=== PATIENT | male | born 1970 | race Caucasian/White ===

== ENCOUNTER 2020-06-22 11:00 | Emergency (ER) | payer OTHER, SELFPAY ==
[2020-06-22 11:02] VITALS: BP 161/99; PULSE 79; RESP 16; TEMP 36.3; O2SAT 98; BMI 25.7
[2020-06-22] MEDS: Ketorolac 30 MG/ML Syringe 60 MG IM (11:33)
[2020-06-22] MEDS: Orphenadrine 100 MG Tablet PO (11:33)
--- NOTE | 2020-06-22 11:41 | CT_ITS ---
STUDY: CT ABDOMEN AND PELVIS WITHOUT CONTRAST REASON FOR EXAM: Male, 50 years old. LOWER BACK PAIN. HX OF HEMANT RADIATION DOSAGE (If Supplied By Facility): CTDIvol = ( 8.67 ) mGy, DLP = ( 480.99 ) mGycm TECHNIQUE: Transaxial images were obtained from the dome of the diaphragm to the symphysis pubis without oral contrast, and without intravenous contrast. Sagittal and coronal images were reconstructed. Individualized dose optimization techniques were used for this CT. COMPARISON: None. FINDINGS: The visualized lung bases are unremarkable. The visualized portions of the heart are within normal limits. Normal liver. There are surgical clips in the gallbladder fossa consistent with a prior cholecystectomy. Normal spleen. Normal pancreas. Normal bilateral adrenal glands. Normal right kidney. Normal left kidney. Normal visualized stomach. Normal small intestine. Normal colon. The appendix is visualized and appears normal. Normal abdominal aorta. Normal inferior vena cava. Normal retroperitoneum. Normal urinary bladder. Normal abdominal wall. Normal osseous structures. CT/Abdomen/Pelvis without Cont IMPRESSION: Normal unenhanced CT of the abdomen and pelvis. Electronically Signed: Kamran Cartagena MD at 12:03 EDT Tel , Service support ,
[2020-06-22 12:20] LABS: Bacteria 0 SEEN /hpf (None Seen); Mucous, Urine 0 SEEN /hpf (<or=2+); Red Blood Cells-Urine 0 SEEN /hpf (0-5); Squamous Epithelial Cells - UA 0 SEEN /hpf (0-5); White Blood Cells 0 SEEN /hpf (0-5)
[2020-06-22 12:47] LABS: Color, Urine Yellow (Yellow); Glucose, Dipstick 1000 mg/dl (Normal); Ketone-Dipstick Negative (Negative); Leukocyte Esterase-Dipstick Negative /ul (Negative); Nitrite-Dipstick Negative (Negative); Occult Blood-Urine Negative /ul (Negative); Protein-Dipstick 15 mg/dl (Negative); Specific Gravity, Urine 1.015 (1.002-1.030); Urine Bilirubin Dipstick Negative (Negative); Urine Clarity Clear (Clear); Urine Urobilinogen Normal (Normal)
--- NOTE | 2020-06-22 13:22 | ED.DCSUM_ITS ---
- ER Visit Summary Date of Service: 06/22/20 Chief Complaint: Back pain History of Present Illness: The patient is a 50 M who presents with back pain that has been getting worse over the past 2 weeks. Patient describes the pain as aching. Patient states the pain has been constant. Patient denies any trau ma or injury. Patient states the pain is over the lower lumbar area. Patient states the pain is worse with ambulation. Patient states the pain does radiate down his left leg. Patient also states he has been having some mild pain in his lower abdomen. Patient is concerned that this could be a urinary tract infection. Patient denies any dysuria or hematuria however. Patient denies any bowel or bladder changes. Patient denies any saddle anesthesia. Physical Examination: Vital signs are stable. Patient is afebrile. Patient is in no acute distress. Musculoskeletal exam reveals tenderness over the lower lumbar spine and paraspinal muscles. There is no edema or ecchymosis. There is no bony crepitance or step-off. Range of motion was limited in all motions of the lumbar spine secondary to pain. Deep tendon reflexes are 2+/4 bilaterally. Strength is 5/5 bilateral in the upper and lower extremities. There are no sensory deficits noted. Abdomen is soft. Bowel sounds are normal. There is no tenderness. Cranial nerves II through XII are intact. There are no focal motor or sensory deficits noted. Test Results: Urinalysis was obtained and was within normal limits. CT scan of the abdomen and pelvis was obtained for possible kidney stone. There is no acute abnormality noted. This was interpreted by the radiologist and reviewed by myself. Emergency Department Course and Treatment: Patient was given injection of Toradol here. Patient was also given a dose of oral Norflex. Patient is feeling better on reevaluation. Patient was given prescriptions for Naprosyn and Flexeril. Patient was instructed to use ice to the area. Patient was instructed to follow-up with his primary care physician in 5 to 7 days. Patient understood and was agreeable with the plan. All questions were answered. Disposition: Discharge home Impression: Lumbosacral strain This note was generated with [employer] dictation software. It may contain incorrect words, spelling, and punctuation that were not noted in review of the chart prior to signing ED Disposition - Plan for ED Patient: Disposition: Home or Assisted Living Diagnosis: Lumbosacral strain Instructions: ED LUMBAR SPRAIN/STRAIN, ED Neck Back Pain General Prescriptions: cycloBENZAPRine HCl [Flexeril] 10 mg PO QHS PRN PRN #20 tab PRN Reason: Muscle Spasm Prescription Printed Naproxen [Naprosyn] 500 mg PO BID PRN #20 tab Prescription Printed Referrals: Linda Eid MD [Primary Care Provider] - 5-7 Days
[2020-06-22 13:56] VITALS: BP 154/97; PULSE 76; RESP 16; O2SAT 100
== END 2020-06-22 13:57 | disposition home or self-care (01) ==
PROVIDERS: Emergency Provider Emergency Medicine; PCP Family Medicine
DX: S39.012A Strain of muscle, fascia and tendon of lower back, initial encounter (principal); X58.XXXA Exposure to other specified factors, initial encounter; Y93.9 Activity, unspecified; Y92.9 Unspecified place or not applicable; I25.10 Atherosclerotic heart disease of native coronary artery without angina pectoris; E11.9 Type 2 diabetes mellitus without complications; Z79.4 Long term (current) use of insulin
CPT/HCPCS: 74176; 81001; 96372; 99283